=== PATIENT | female | born 1955 | race Caucasian/White ===

== ENCOUNTER 2016-12-05 08:32 | Outpatient (CLI) | payer OTHER ==
--- NOTE | 2016-12-05 09:37 | CT ---
HEAD CT NONCONTRAST: INDICATION: Headache. Fall, head injury and pain. COMPARISON: No prior comparison. FINDINGS: There is no evidence of intracranial hemorrhage, mass effect, midline shift, or ventriculomegaly. C alvarium is intact. No fluid level of acuity seen within the imaged paranasal sinus. IMPRESSION: No intracranial hemorrhage or mass effect. POS: [facility]
== END 2016-12-05 08:33 | disposition home or self-care (01) ==
LOC: CT 08:32
PROVIDERS: ATTEND Family Medicine
DX: G44.301 Post-traumatic headache, unspecified, intractable (principal)
CPT/HCPCS: 70450

== ENCOUNTER 2023-04-10 12:54 | Outpatient (CLI) | payer MEDICARE, OTHER | END 2023-04-10 12:55 | disposition home or self-care (01) | LOC: BICRAD 12:54 | PROVIDERS: ATTEND Internal Medicine | DX: R05.9 Cough, unspecified (principal) | CPT/HCPCS: 71046 ==